=== PATIENT | male | born 2000 | race Two or more races ===

== ENCOUNTER 2024-05-11 19:41 | Emergency (ER) | payer MEDICAID, OTHER ==
[~2024-05-11] VITALS: Ht 152.4 cm; Wt 48.5 kg
[2024-05-11 19:53] VITALS: BP 144/101
--- NOTE | 2024-05-11 20:03 | ED.PDOC ---
Eye-HPI HPI Comments 23 y.o male presents to the ED for a chief complaint of a sore throat associated with blistering inside the mouth, gum region x 3 days. Patient report he went on vacation and came back feeling unwell. Patient denies any discharge, bleeding, fever, chills. Chief Complaint: Sore Throat Time Seen by MD: 19:55 Reviewed Notes: Nurses Notes, Medications, Allergies Allergies: Coded Allergies: NO KNOWN ALLERGIES (Unverified , 05/11/24) Information Source: Patient Mode of Arrival: Ambulatory Timing: Days (3) Duration: Since onset Mouth Location: Gums Past Medical History PAST MEDICAL HISTORY: Denies Surgical History: Denies all surgeries Family History Family History: Reviewed,noncontributory to illness, No family hx of Cancer, No family hx of DM, No family hx of Heart avery, No family hx of HTN, No family hx ofKidney avery, No family hx of Liver avery, No family hx of Lung avery, No family hx of Stroke Social History Smoker: Non-Smoker Alcohol: Occasionally Drugs: Denies Drug Use Lives In: Home Constitutional: denies: chills, diaphoresis, fatigue, fever, malaise, sweats, weakness, others EENTM: reports: throat pain; denies: blurred vision, double vision, ear bleeding, ear discharge, ear drainage, ear pain, ear ringing, eye pain, eye redness, hearing loss, mouth pain, mouth swelling, nasal discharge, nose bleeding, nose congestion, nose pain, photophobia, tearing, throat swelling, voice changes, others Respiratory: denies: cough, hemoptysis, orthopnea, SOB at rest, shortness of breath, SOB with excertion, stridor, wheezing, others Gastrointestinal: denies: abdomen distended, abdominal pain, blood streaked b owels, constipated, diarrhea, dysphagia, difficulty swallowing, hematemesis, melena, nausea, poor appetite, poor fluid intake, rectal bleeding, rectal pain, vomiting, others Genitourinary: denies: burning, dysuria, flank pain, frequency, hematuria, incontinence, penile discharge, penile sore, pain, testicle pain, testicle swelling, urgency, others Neurological: denies: dizziness, fainting, headache, left sided numbness, left sided weakness, numbness, paresthesia, pre-existing deficit, right sided numbness, right sided weakness, seizure, speech problems, tingling, tremors, weakness, others Musculoskeletal: denies: back pain, gout, joint pain, joint swelling, muscle pain, muscle stiffness, neck pain, others Integumetry: reports: others (blistering to the gums ); denies: bruises, change in color, change in hair/nails, dryness, laceration, lesions, lumps, rash, wounds Allergic/Immunocompromised: denies: Difficulty Healing, Frequent Infections, Hives, Itching, others Hematologic/Lymphatic: denies: anemia, blood clots, easy bleeding, easy bruising, swollen glands, others Endocrine: denies: excessive hunger, excessive sweating, excessive thirst, excessive urination, flushing, intolerance to cold, intolerance to heat, une xplained weight gain, unexplained weight loss, others Psychiatric: denies: anxiety, bipolar disorder, depression, hopeless, panic disorder, schizophrenia, sleepless, suicidal, others All Other Systems: Reviewed and Negative Physical Exam General Appearance: No Apparent Distress, Normal HEENT: Other (right side lymph submandibular 1x1 cm node. ) Neck: Full Range of Motion, Non-Tender, Normal, Normal Inspection Respiratory: Chest Non-Tender, Lungs Clear, No Accessory Muscle Use, No Respiratory Distress, Normal Breath Sounds Cardiovascular: No Edema, No JVD, No Murmur, No Gallop, Normal Peripheral Pulses, Regular Rate/Rhythm Breast Exam: Deferred Gastrointestinal: No Organomegaly, Non Tender, No Pulsatile Mass, Normal Bowel Sounds, Soft Genitalia: Deferred Pelvic: Deferred Rectal: Deferred Extremities: No calf tenderness, Normal capillary refill, Normal inspection, Normal range of motion, Non-tender, No pedal edema Musculoskeletal : Apperance: Normal Neurologic: Alert, 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 Was a procedure done?: No EENT DIFF Eye: N/A Ear: Otitis Externa, Otitis Media, Dental, Pharyngitis, Sinusitis, N/A Nose: N/A Mouth: AIDS, Herpangina, Herpes Simplex Sore Throat: Epiglottitis, Herpangina, Herpetic Stomatitis, Mononeucleosis, Wili's Angina, Peritonsillar Abscess, Peritonsillar Cellulitis, Pharyngitis, Diptheria, Streptococcal, Viral Pharyngitis, URI, Other (lymphoma) X-Ray, Labs, Meds, VS Vital Signs Date Time Temp Pulse Resp B/P (MAP) Pulse Ox O2 Delivery O2 Flow Rate FiO2 05/11/24 19:53 99.6 90 16 144/101 (115) 99 Time of 1ST Reevaluation: 20:02 Reevaluation 1ST: Unchanged Patient Education/Counseling: Diagnosis, Treatment, Prognosis, Need For Follow Up Family Education/Counseling: No Family Present Additional Information - I reviewed the following notes from patient's past medical encounters: None - The following tests were ordered, and results were reviewed by me: - Additional information was gathered from interviewing the following independent Historian: None - I reviewed and agreed with the following test results read by other provider: - I discussed treatments and results with medical personnel per Modified [facility] Criteria, pt only has 2 point, or less than 20% probability of strep pharyngitis. he has stomatitis, which is more consistent with a viral infection, rather than bacterial. Departure 1 Departure Time of Disposition: 20:09 Impression: Primary Impression: Stomatitis Additional Impression: Adenopathy Disposition: 01 HOME / SELF CARE / HOMELESS Condition: Good e-Prescriptions Ibuprofen Micronized (MOTRIN TABLET) 600 Mg Tb 600 MG PO TID PRN, #40 TAB *Black box warning-NSAIDS can increase risk of SD & hypertension, GI irritation, ulceration, bleed, perferation. Do not use post cardiac surgery. Use short duration/lowest effective dose. Prov: TAY WU MD 05/11/24 Discharged With: Self Critical Care Note Critical Care Time?: No Stability Stability form required: No I personally scribed for TAY WU MD ([email or web address]) on 05/11/24 at 20:03. Electronically submitted by Sarah Morrell ([facility]). TAY WU MD May 11, 2024 20:03
[2024-05-11] MEDS ORDERED: IBU600T PO (20:11)
[2024-05-11 21:46] VITALS: PULSE 90; RESP 16; O2SAT 99
== END 2024-05-11 23:47 | disposition home or self-care (01) ==
LOC: ER 19:41
DX: K12.1 Other forms of stomatitis (principal); R59.9 Enlarged lymph nodes, unspecified